=== PATIENT | male | born 1940 | race Caucasian/White ===

== ENCOUNTER 2018-03-02 13:07 | Emergency (ER) | payer MEDICARE, OTHER ==
[~2018-03-02] VITALS: Ht 175.3 cm; Wt 90.7 kg
[2018-03-02] MEDS ORDERED: LISINOPRIL10 MG PO (13:34)
[2018-03-02] MEDS ORDERED: ZOCOR10 MG PO (13:34)
== END 2018-03-02 13:44 | disposition home or self-care (01) ==
LOC: ED 13:07
DX: T63.441A Toxic effect of venom of bees, accidental (unintentional), initial encounter (principal); I10 Essential (primary) hypertension; E78.00 Pure hypercholesterolemia, unspecified; Z79.899 Other long term (current) drug therapy
CPT/HCPCS: 99282